=== PATIENT | female | born 1975 | race Caucasian/White ===

== ENCOUNTER → 2022-05-02 15:15 | Outpatient (CLI) | payer BC, SELFPAY ==
--- NOTE | ~2022-05-02 | US_ITS ---
EXAMINATION: US pelvic complete DATE: 05/02/2022 15:35 INDICATION: Abnormal uterine bleeding TECHNIQUE: Multiple transabdominal and endovaginal sonographic images of the pelvis were obtained. COMPARISON: None. FINDINGS: The uterus measures 10.5 x 4.9 x 6.5 cm. The endometrial complex measures 7 mm. An IUD is i n expected position. The right ovary measures 2.8 x 1.6 x 2.0 cm. The left ovary measures 2.4 x 1.9 x 1.6 cm. There is normal vascular flow in the ovaries. There is no free fluid in the pelvis. IMPRESSION: 1. No sonographic correlate for the patient's symptoms. Reviewed, dictated and finalized at location B. [employer]
== END ==
PROVIDERS: PCP Nurse Practitioner; Visit Provider Nurse Practitioner
DX: N93.8 Other specified abnormal uterine and vaginal bleeding (principal)
CPT/HCPCS: 76856

== ENCOUNTER → 2022-12-03 14:28 | Outpatient (CLI) | payer OTHER, SELFPAY ==
--- NOTE | ~2022-12-03 | MM_ITS ---
EXAMINATION: MM screening [facility] BI w shawn HISTORY: Screening TECHNIQUE: Craniocaudal and mediolateral oblique 3-D tomosynthesis images were obtained and synthetic 2-D images were generated. CAD analysis was submitted and interpreted. COMPARISON: 10/17/2011 BREAST PARENCHYMAL COMPOSITION: Breast composed of scattered areas of fibroglandular density FINDINGS: There are multiple developing bilateral breast masses predominantly in the upper outer quad rant of both breasts, there is a new mass in the lower outer quadrant. There are no suspicious calcif ications or architectural distortion. IMPRESSION: 1. New bilateral breast masses. 2. Additional mammographic views and possible breast ultrasound are recommended. BI-RADS Category 0: Incomplete: Needs additional imaging evaluation. Reviewed, dictated and finalized at location A. IMPRESSION: 1. New bilateral breast masses. 2. Additional mammographic views and possible breast ultrasound are recommended . BI-RADS Category 0: Incomplete: Needs additional imaging evaluation.
== END ==
PROVIDERS: PCP Obstetrics & Gynecology Gynecology; Visit Provider Obstetrics & Gynecology Gynecology
DX: Z12.31 Encounter for screening mammogram for malignant neoplasm of breast (principal); N63.21 Unspecified lump in the left breast, upper outer quadrant; N63.11 Unspecified lump in the right breast, upper outer quadrant; N63.23 Unspecified lump in the left breast, lower outer quadrant; N63.13 Unspecified lump in the right breast, lower outer quadrant
CPT/HCPCS: 77063; 77067

== ENCOUNTER 2022-12-30 09:32 | Outpatient (CLI) | payer OTHER, SELFPAY ==
--- NOTE | ~2022-12-30 | MMUS_ITS ---
EXAMINATION: MM diagnostic [facility] BI w shawn, US breast BI limited HISTORY: New bilateral breast masses reported on 12/03/2022 screening mammogram TECHNIQUE: Additional 3-D tomosynthesis images of both breasts were performed and synthetic 2-D image s were generated. CAD analysis was submitted and interpreted. High resolution bilateral upper outer a nd lower-outer quadrant breast ultrasound was performed. COMPARISON: 12/03/2022 bilateral screening mammogram FINDINGS: MAMMOGRAPHIC FINDINGS: Bilateral partially obscured breast masses are noted. Bilateral complete breast ultrasound examinatio n was performed. No architectural distortion, malignant calcification, skin thickening or retraction of either breast is detected. ULTRASOUND: No suspicious solid mass lesion or shadowing of either breast is detected. Multiple bilat eral breast cysts are noted as follows: Right breast: 11:00 10 cm from nipple: Parallel circumscribed hypoechoic 5.2 x 7.7 mm lesion without internal vascu larity or posterior shadowing, benign in appearance 10:00 13 cm from nipple: Parallel circumscribed 3.4 x 7.4 x 6.1 mm sonolucency, consistent with small cyst 10:00 12 cm from nipple: 3.2 x 5.4 x 3.2 mm cyst 10:00 11 cm from nipple: 10 x 18 x 20 mm simple cyst with through transmission posterior enhancement 9:00 10 cm from nipple: 4.2 x 3.3 x 4.6 mm cyst 8:00 9 cm from nipple: Parallel circumscribed sonolucency measuring 8 x 6 x 2.5 mm, consistent with s mall cyst 7:00 4 cm from nipple: 3.7 x 4.9 x 3.9 mm circumscribed hypoechoic lesion without internal vascularit y or posterior shadowing, benign in appearance Left breast: 2:00 12 cm from nipple: 5.4 x 9 x 7 mm cyst 2:00 12 cm from nipple: 1.3 x 3.3 mm cyst 2:00 11 cm from nipple: Septated 5.8 x 6 x 7 mm cyst 2:00 11 cm from nipple: 2.5 x 2.8 mm cyst 2:00 10 cm from nipple: Multi septated 7.8 x 6.7 x 10 mm cyst 4:00 9 cm from nipple: 8 x 9.4 x 9 mm complicated cyst with through transmission posterior enhancemen t, no internal vascularity 5:00 8 cm from nipple: 2.9 x 5.1 mm circumscribed cyst IMPRESSION: 1. Benign findings; no mammographic evidence of malignancy 2. Routine annual mammographic screening is recommended. BI-RADS Category 2: Benign finding(s). Reviewed, dictated and finalized at location A. IMPRESSION: 1. Benign findings; no mammographic evidence of malignancy 2. Routine annual mammographic screening is recommended. BI-RADS Category 2: Benign finding(s).
== END 2022-12-30 09:33 ==
LOC: MICIMG 09:33
PROVIDERS: PCP Obstetrics & Gynecology Gynecology; Visit Provider Obstetrics & Gynecology Gynecology
DX: R92.8 Other abnormal and inconclusive findings on diagnostic imaging of breast (principal)
CPT/HCPCS: 76642; 77062; 77066; G0279

== ENCOUNTER 2023-12-07 07:13 | Outpatient (CLI) | payer OTHER, SELFPAY ==
--- NOTE | ~2023-12-07 | MM_ITS ---
EXAMINATION: MM screening [facility] BI w shawn HISTORY: Screening TECHNIQUE: Craniocaudal and mediolateral oblique 3-D tomosynthesis images were obtained and synthetic 2-D images were generated. CAD analysis was submitted and interpreted. COMPARISON: 12/03/2022 BREAST PARENCHYMAL COMPOSITION: Not dense: There are scattered areas of fibroglandular density. FINDINGS: There is no evidence of suspicious mass, calcification, or architectural distortion to sugg est malignancy in either breast. There has been no suspicious interval change. IMPRESSION: 1. No mammographic evidence of malignancy. 2. Recommend routine screening mammography in one year. BI-RADS Category 1: Negative Reviewed, dictated and finalized at location B.
== END 2023-12-07 07:14 ==
PROVIDERS: PCP Nurse Practitioner; Visit Provider Nurse Practitioner
DX: Z12.31 Encounter for screening mammogram for malignant neoplasm of breast (principal)
CPT/HCPCS: 77063; 77067